=== PATIENT | male | born 1980 | race Two or more races ===

== ENCOUNTER 2019-03-28 08:41 | Emergency (ER) | payer SELFPAY ==
[2019-03-28 09:01] VITALS: BMI 31.6
--- NOTE | 2019-03-28 09:17 | PDOC ---
History of Present Illness - General Chief Complaint: Chest Pain Stated Complaint: PAIN Time Seen by Provider: 03/28/19 09:17 History Source: Patient Exam Limitations: No Limitations - History of Present Illness Initial Comments: 03/28/19 09:56 39 yo M with no significant PMHx presents with one day history of rectal bleeding. He states that on 03/17/19 he was diagnosed with H.pylori and was started on triple therapy. He has been taking as directed. He now presents rectal bleeding since yesterday. He states that when he deficates he has bright red blood. He states that the blood is first and then stool. No diarrhea. Mild epigastric pain 4/10 that is constant and radiates to LUQ. No aggravating factors but has been getting better since starting triple therapy. Anal pain is more severe and more concerning for him. He describes 10/10 pain when he defactats. Pain has no alleviating factors. Denies SOB, palpitations, fever, chills, nausea or vomiting. Timing/Duration: 24 hours Severity: moderate Past History - Travel Traveled outside of the country in the last 30 days: No Close contact w/someone who was outside of country & ill: No - Past Medical History Allergies/Adverse Reactions: Allergies Allergy/AdvReac Type Severity Reaction Status Date / Time No Known Allergies Allergy Verified 03/28/19 09:02 Home Medications: Ambulatory Orders Amoxicillin - [Amoxicillin 500mg Capsule -] 500 mg PO BID 03/28/19 Clarithromycin [Biaxin -] 500 mg PO BID 03/28/19 Docusate Sodium [Colace] 100 mg PO DAILY 30 Days #30 capsule 03/28/19 Omeprazole 20 mg PO DAILY 03/28/19 Clobetasol Propionate [Impoyz] 1 applic TP BID #1 tube 03/31/19 Diphenhydramine HCl [Benadryl -] 25 mg PO Q6H #28 capsule 03/31/19 COPD: No HTN: Yes - Immunization History Immunization Up to Date: Yes - Suicide/Smoking/Psychosocial Hx Smoking History: Never smoked Have you smoked in the past 12 months: No Information on smoking cessation initiated: No Hx Alcohol Use: No Drug/Substance Use Hx: No Substance Use Type: None Review of Systems - Review of Systems Constitutional: No: Chills, Diaphoresis, Fever HEENTM: No: Recent change in vision Respiratory: No: Cough, Orthopnea, Shortness of Breath Cardiac (ROS): Yes: Chest Pain. No: Edema, Irregular Heart Rate, Chest Tightness ABD/GI: No: Nausea Musculoskeletal: No: Joint Pain Neurological: No: Headache, Weakness *Physical Exam - Vital Signs Last Vital Signs Temp Pulse Resp BP Pulse Ox 98.3 F 91 H 17 167/95 97 03/28/19 08:54 03/28/19 08:54 03/28/19 08:54 03/28/19 08:54 03/28/19 08:54 - Physical Exam General Appearance: Yes: Appropriately Dressed, Moderate Distress HEENT: positive: SHIKHA Neck: positive: Supple Respiratory/Chest: positive: Lungs Clear, Normal Breath Sounds. negative: Respiratory Distress Cardiovascular: positive: Regular Rhythm, Regular Rate, S1, S2. negative: Edema , JVD, Murmur Gastrointestinal/Abdominal: positive: Normal Bowel Sounds, Tender, Flat, Soft, Other (ASA showed external hemorrhoid. No bleeding . stool in recatal vault. ) Musculoskeletal: negative: CVA Tenderness Integumentary: positive: Normal Color, Dry, Warm Neurologic: positive: Fully Oriented, Alert, Normal Mood/Affect Medical Decision Making - Medical Decision Making 03/28/19 10:29 39 yo M with no significant PMHx presents with one day history of rectal bleeding. Found to have external hemorrhoids. Will send for stool occult blood. -Topical lidocaine and preparation H suppository 03/28/19 10:43 Stool occult blood is positive. -Will give him referral to Dr. Bellamy for possible intervention if conservative measures don't work. *DC/Admit/Observation/Transfer Diagnosis at time of Disposition: Bleeding hemorrhoid - Discharge Dispostion Disposition: HOME Condition at time of disposition: Stable Decision to Admit order: No - Prescriptions Prescriptions: Docusate Sodium [Colace] 100 mg PO DAILY 30 Days #30 capsule - Referrals Referrals: Robert Bellamy MD [Staff Physician] - - Patient Instructions Printed Discharge Instructions: DI for Hemorrhoids Additional Instructions: Increase activity as tolerated. Resume a high fiber diet. You can go to pharmacy and sampler pickup new medication Colace (stool softner) which you will take once a day and buy preparation H and Sitz bath for your pain, You will be given a referral to surgeon Dr. Bellamy to evaluate you for possible surgical intervention. If pain worsens, bleeding becomes more severe, or you develop fever or chills please return to ER immediately. Aumentar la actividad segn lo tolerada. Empezar suresh dieta lolita en fibra. Puede ir a la farmacia y recoger el nuevo medicamento Colace (ablandador de heces) que brown suresh vez al da y comprar la preparacin H y el herberth de asiento para aliviar el dolor. Se le enviar al cirujano Dr. Bellamy para que lo evale para suresh posible ciruga. intervencin. Si el dolor empeora, el sangrado se agrava o si presenta fiebre o escalofros, vuelva inmediatamente a la lluvia de emergencias. Print Language: TAIWANESE - Post Discharge Activity
[2019-03-28 10:12] VITALS: BP 135/81; PULSE 76; TEMP 98
[2019-03-28] MEDS ORDERED: LIDOCAINE HCL 5% TOP OINTMENT 50 GM TUBE TP ONE (10:40)
[2019-03-28] MEDS ORDERED: PHENYLEPHRINE HCL/COCOA BUTTER SUPPOSITORY RC ONE (10:45)
--- NOTE | 2019-03-28 10:47 | PDOC ---
Documentation entered by Meliza Pinto SCRIBE, acting as scribe for Malka Pastor MD. Malka Pastor MD: This documentation has been prepared by the Blair benedict Nirvannie, SCRIBE, under my direction and personally reviewed by me in its entirety. I confirm that the documentation accurately reflects all work, treatment, procedures, and medical decision making performed by me. Attending Attestation - Resident Resident Name: Genaro Odom - ED Attending Attestation I have performed the following: I have examined & evaluated the patient, The case was reviewed & discussed with the resident, I agree w/resident's findings & plan, Exceptions are as noted - HPI HPI: 03/28/19 10:04 The patient is a 39 year old male, with a significant past medical history of recent diagnosis of H. pylori (by PCP on stool culture, compliant with medications), who presents to the emergency department with, bright red bloody stools. As per patient, upon defecation, patient observes bright red blood then stool. He endorses associated 3-4/10, constant chest pain which is better after medications. He denies any recent fevers, chills, headache or dizziness. He denies any recent palpitations or shortness of breath. He denies any recent dysuria, frequency, urgency or hematuria. Allergies: NKDA Primary Care Physician: Cynthia Luu. - Physicial Exam PE: 03/28/19 10:04 GENERAL: Awake, alert, and fully oriented, in no acute distress HEAD: No signs of trauma EYES: PERRLA, EOMI, sclera anicteric, conjunctiva clear ENT: Auricles normal inspection, hearing grossly normal, nares patent, oropharynx clear without exudates. Moist mucosa NECK: Normal ROM, supple, no lymphadenopathy, JVD, or masses LUNGS: Breath sounds equal, clear to auscultation bilaterally. No wheezes, and no crackles HEART: Regular rate and rhythm, normal S1 and S2, no murmurs, rubs or gallops ABDOMEN: Soft, nontender, normoactive bowel sounds. No guarding, no rebound. No masses EXTREMITIES: Normal range of motion, no edema. No clubbing or cyanosis. No cords, erythema, or tenderness NEUROLOGICAL: Cranial nerves II through XII grossly intact. Normal speech, normal gait SKIN: Warm, Dry, normal turgor, no rashes or lesions noted. - Medical Decision Making Pt with hemorrhoid which is the main cause of his pain. He has been having LUQ pain with his gastritis, but the rectal pain is new. Will treat with preparation H, topical lido, witch renee, sitz baths. Gen surg f/u.
--- NOTE | 2019-03-29 11:09 | EKG ---
Test Reason : Blood Pressure : / mmHG Vent. Rate : 081 BPM Atrial Rate : 081 BPM P-R Int : 162 ms QRS Dur : 090 ms QT Int : 380 ms P-R-T Axes : 031 049 040 degrees QTc Int : 441 ms NORMAL SINUS RHYTHM NORMAL ECG WHEN COMPARED WITH ECG OF 27-NOV-2015 09:30, NO SIGNIFICANT CHANGE WAS FOUND Confirmed by KATTY SEARS MD ([id number]) on 03/29/2019 11:09:23 AM Referred By: Confirmed By:KATTY SEARS MD
== END 2019-03-28 11:28 | disposition home or self-care (01) ==
LOC: JER 08:41
DX: K64.8 Other hemorrhoids (principal)
CPT/HCPCS: 36415; 82272; 93005; 93010; 99283-25

== ENCOUNTER 2019-03-31 09:20 | Emergency (ER) | payer SELFPAY ==
[2019-03-31 09:42] VITALS: BP 121/71; PULSE 80; TEMP 97.6; BMI 31.6
[2019-03-31] MEDS ORDERED: diphenhydrAMINE HCL 25 MG CAPSULE (FP) PO ONE ×2 (10:20→10:23)
--- NOTE | 2019-03-31 10:28 | PDOC ---
History of Present Illness - General Chief Complaint: Rash Stated Complaint: RASH Time Seen by Provider: 03/31/19 09:45 History Source: Patient Exam Limitations: No Limitations Past History - Travel Traveled outside of the country in the last 30 days: No Close contact w/someone who was outside of country & ill: No - Past Medical History Allergies/Adverse Reactions: Allergies Allergy/AdvReac Type Severity Reaction Status Date / Time No Known Allergies Allergy Verified 03/28/19 09:02 Home Medications: Ambulatory Orders Amoxicillin - [Amoxicillin 500mg Capsule -] 500 mg PO BID 03/28/19 Clarithromycin [Biaxin -] 500 mg PO BID 03/28/19 Docusate Sodium [Colace] 100 mg PO DAILY 30 Days #30 capsule 03/28/19 Omeprazole 20 mg PO DAILY 03/28/19 Clobetasol Propionate [Impoyz] 1 applic TP BID #1 tube 03/31/19 Diphenhydramine HCl [Benadryl -] 25 mg PO Q6H #28 capsule 03/31/19 COPD: No HTN: Yes - Immunization History Immunization Up to Date: Yes - Suicide/Smoking/Psychosocial Hx Smoking History: Never smoked Have you smoked in the past 12 months: No Hx Alcohol Use: No Drug/Substance Use Hx: No Substance Use Type: None Review of Systems - Review of Systems Able to Perform ROS?: Yes Comments:: 03/31/19 10:22 CONSTITUTIONAL: Absent: fever, chills, diaphoresis, generalized weakness, malaise, loss of appetite HEENT: Absent: rhinorrhea, nasal congestion, throat pain, throat swelling, difficulty swallowing, mouth swelling, ear pain, eye pain, visual Changes RESPIRATORY: Absent: cough, shortness of breath, dyspnea with exertion, orthopnea, wheezing, stridor, hemoptysis GASTROINTESTINAL: Absent: abdominal pain, abdominal distension, nausea, vomiting, diarrhea, constipation, melena, hematochezia SKIN: Present: rash/itching Absent: pallor NEUROLOGIC: Absent: headache, focal weakness or paresthesias, dizziness, unsteady gait, seizure, mental status changes, bladder or bowel incontinence PSYCHIATRIC: Absent: anxiety, depression, suicidal or homicidal ideation, hallucinations. Is the patient limited Chadian proficient: No *Physical Exam - Vital Signs Last Vital Signs Temp Pulse Resp BP Pulse Ox 97.6 F 80 18 121/71 99 03/31/19 09:38 03/31/19 09:38 03/31/19 09:38 03/31/19 09:38 03/31/19 09:38 - Physical Exam Comments: 03/31/19 10:22 GENERAL: The patient is awake, alert, and fully oriented, in no acute distress. HEAD: Normal with no signs of trauma. EYES: Pupils equal, round and reactive to light, extraocular movements intact, sclera anicteric, conjunctiva clear. EXTREMITIES: Normal range of motion, no edema. NEUROLOGICAL: Normal speech, normal gait. PSYCH: Normal mood, normal affect. SKIN: Scattered wheels and blanching erythematous patches to the arms, trunk, and legs b/l. Warm, Dry, normal turgor. Medical Decision Making - Medical Decision Making 03/31/19 10:23 The patient is a 39-year-old male with past medical history of H. pylori, currently on triple therapy, hemorrhoids, who presents to the emergency department today for a generalized rash. Patient states that he was seen here on the and given a new medication. He states that since then he broke out in worsening rash. He states that he might have felt itchy prior to taking the new medication but he is unsure. He states that the rash is on his abdomen, legs and arms that has progressively gotten worse over the last 3 days. He has not taken any medication for the rash. Denies fevers, chills, difficulty breathing, swelling of the lips and tongue, nausea, vomiting and diarrhea. A/P: rash. On exam patient with scattered wheals and blanching erythematous patches to the abdomen/trunk, arms and legs bilaterally. Appears allergic in nature. Patient recently started Colace; however, patient on amoxicillin and clarithromycin for H. pylori triple therapy. Suspect rash most likely from Colace however cannot rule out allergy to antibiotics. Patient states he is almost finished with his triple therapy. Will recommend finishing the medication given the benefits outweigh the risk of rash. recommended to stop the Colace. Patient instructed to follow up with his primary care doctor tomorrow. Will give Benadryl and clobetasol cream as outpatient Discharge home with strict return precautions I discussed the physical exam findings, ancillary test results and final diagnoses with the patient. I answered all of the patient's questions. The patient was satisfied with the care received and felt comfortable with the discharge plan and treatment plan. The Patient agrees to follow up with the primary care physician/specialist within 24-72 hours. Return precautions were given. *DC/Admit/Observation/Transfer Diagnosis at time of Disposition: Rash - Discharge Dispostion Disposition: HOME Condition at time of disposition: Stable Decision to Admit order: No - Referrals Referrals: Corey Grijalva MD [Staff Physician] - - Patient Instructions Printed Discharge Instructions: DI for General Allergic Reactions Additional Instructions: You were evaluated for your rash today. It is most likely allergic in nature. You were prescribed Benadryl. Please take this medication 25 mg every 6 hours for the rash. You may use the clobetasol cream twice a day to affected area. Do not use this medication in the groin or on the face. Please stop taking the Colace. You may drink prune juice to help you use the bathroom. Please continue your antibiotics for the H. pylori as prescribed. Please follow-up with your primary care doctor tomorrow. Return to the ER for worsening rash, difficulty breathing, lip or tongue swelling, or if you have any changes in your symptoms. Usted fue evaluado para walter erupcin hoy. Es muy probable que sea alrgica en la naturaleza. Te recetaron Benadryl. Por favor tome janae medicamento 25 mg cada 6 horas para la erupcin. Puede usar la crema clobetasol dos veces al da en la kimani afectada. No utilice janae medicamento en la kehinde o en la lori. Por favor, deje de brown el Colace. Usted puede beber jugo de ciruela para ayudarle a usar el herberth. Por favor, contine con los antibiticos para el H. pylori segn lo prescrito. Por favor, haz un seguimiento con tu mdico de cabecera maana. Regrese a la ER para empeorar la erupcin cutnea, dificultad para respirar, hinchazn de los labios o la lengua, o si tiene algn cambio en los sntomas. - Post Discharge Activity Forms/Work/School Notes: Back to Work
== END 2019-03-31 10:37 | disposition home or self-care (01) ==
LOC: JERFT 09:20
DX: T78.40XA Allergy, unspecified, initial encounter (principal); X58.XXXA Exposure to other specified factors, initial encounter; Y93.89 Activity, other specified; Y92.89 Other specified places as the place of occurrence of the external cause; Y99.8 Other external cause status
CPT/HCPCS: 99281-25